=== PATIENT | male | born 1975 | race Caucasian/White ===

== ENCOUNTER → 2019-02-11 | Outpatient (CLI) | payer OTHER ==
--- NOTE | 2019-02-11 11:39 | RAD ---
MR#: [id number] Date of Study: 02/11/2019 Ordering Physician: SHAUNA SILVEIRA, Referring Physician: ROSA MARIA RASCON Tech: OLGA LIDIA Rowe, ARRT (R) (N) APPROVED REPORT Test Type: Exercise Stress Nurse/Tech: Kandy Osorio R.N. Test Indications: CHAN Cardiac History: htn Medications: amlodipine Medical History: see ehr Resting ECG: SR with pac Resting Heart Rate: 67 bpm Resting Blood Pressure: 140/90mmHg Pretest Chest Pain: No chest pain Nurse/Tech Notes lungs cta, heart tones regular Consent: The procedure was explained to the patient in lay terms. Informed consent was witnessed. Wilmer eout was entered into [facility]. History and Stress Test performed by RT Barby (Nirmal) (N) Stress Symptoms No chest pain or symptoms. POST EXERCISE Reason for Termination: Reached target heart rate Target HR: Yes Max HR: 159 bpm 90% of Maximum Predicted HR: 176 bpm Exercise duration: 11:31 min:sec, 4 Stage Exercise capacity: 13.4METs Max Blood Pressure: 180/110mmHg Blood Pressure response to exercise: Normal blood pressure response during stress. Heart Rate response to exercise: normal Chest Pain: No. Arrhythmia: No. ST Change: No. INTERPRETATION Stress EKG Conclusion: The resting EKG shows a sinus rhythm with an incomplete right bundle branch bl ock and nonspecific ST segment changes. The stress EKG showed no significant changes from baseline. No EKG evidence of stress-induced ischemia. Imaging Protocol IMAGE PROTOCOL: Rest Tc-99m/stress Tc-99m 1 day Rest: Stress: Viability: Radiopharm.Tc99m NpsbsvvqrKr52r Zzotfhngl86 Niqe48hPt 32mCi Img Date 02/11/2019 02/11/2019 Inj-Img Jqvu93csz. 45min. Rest Admin Site:IV - Right AntecubitalAdministrator:RADHA Rai Stress Admin Site: IV - Right AntecubitalAdministrator: RT Barby (R)(N) STRESS DATA End Diast. Vol.165.0mlLVEDV index BSA78.0ml End Syst. Vol.55.0mlLVESV index BSA26.0ml Myocardial Yvup512.0gEject. Skwnkjwh21.0% Stress Scores Regional WT1.00Summed WT8.00 Regional WM0.00Summed WM1.00 LV Perfusion Stress scans showed no significant defects. Rest scans showed no significant defects. Nuclear imaging shows no reversible ischemia or infarct. Wall Motion Left ventricular systolic function is normal with no regional wall motion abnormalities and an ejecti on fraction of 64%. LV Perf. Quant 17 Seg. SSS0.00 17 Seg. SRS0.00 17 Seg. SDS0.00 Stress Defect Extent (% LAD)0.00Rest Defect Extent (% LAD)0.00Rev. Defect Extent (% LAD)0.00 Stress Defect Extent (% LCX) 0.00Rest Defect Extent (% LCX)0.00Rev. Defect Extent (% LCX)0.00 Stress Defect Extent (% RCA)0.00Rest Defect Extent (% RCA)0.00Rev. Defect Extent (% RCA)0.00 Stress Defect Extent (% SHREE)0.00Rest Defect Extent (% SHREE)0.00Rev. Defect Extent (% SHREE)0.00 Conclusion 1. Very good exercise tolerance. 2. No chest pain reported with exertion. 3. No EKG evidence of stress-induced ischemia. 4. Nuclear imaging shows no reversible ischemia or infarct. 5. Normal LV systolic function with an ejection fraction of 64%. 6. Low risk treadmill nuclear stress test. Signed by : Darrius Quevedo MD Electronically Approved : 02/11/2019 11:39:15
== END | disposition home or self-care (01) ==
LOC: NM 08:30
PROVIDERS: ATTEND Internal Medicine Cardiovascular Disease
DX: I45.10 Unspecified right bundle-branch block (principal); I10 Essential (primary) hypertension
CPT/HCPCS: 78452; 93017; A9500

== ENCOUNTER → 2019-02-17 | Outpatient (CLI) | payer OTHER ==
--- NOTE | 2019-02-17 14:16 | CARD ---
MR#: [id number] Date of Study: 02/17/2019 Ordering Physician: SHAUNA LADD, Referring Physician: SHAUNA LADD Tech: Marina Coy RDCS APPROVED REPORT EXAM: Two-dimensional and M-mode echocardiogram with Doppler and color Doppler. Other Information Quality : AverageHR: 70bpm Rhythm : NSR INDICATION Dyspnea 2D DIMENSIONS RVDd3.5 (2.9-3.5cm)Left Atrium(2D)3.7 (1.6-4.0cm) IVSd1.2 (0.7-1.1cm)Aortic Root(2D)3.3 (2.0-3.7cm) LVDd5.0 (3.9-5.9cm)LVOT Diameter2.6 (1.8-2.4cm) PWd1.3 (0.7-1.1cm)LVDs2.9 (2.5-4.0cm) FS (%) 42.0 %SV84.6 ml LVEF(%)72.8 (>50%) M-Mode DIMENSIONS Left Atrium(MM)4.10 (2.5-4.0cm)Aortic Root3.26 (2.2-3.7cm) Aortic Valve AoV Peak Sean.140.8cm/sAoV VTI28.6cm AO Peak GR.7.9mmHgLVOT Peak Sean.87.9cm/s AO Mean GR.4mmHgAVA (VMAX)3.20cm2 TITO (VTI)3.00cm2 Mitral Valve MV E Zrzewrii97.6cm/sMV DECEL [id number] MV A Pyrnmxdj54.9cm/sE/A Ratio1.3 Pulmonary Valve PV Peak Aphfdfuo67.5cm/s Tricuspid Valve TR P. Heakpilb675lg/sRAP VGJXJWBP4dkIg TR Peak Gr.75enZcBEHA30gqIl LEFT VENTRICLE The left ventricle is normal size. There is mild concentric left ventricular hypertrophy. The Ejectio n Fraction is 65-70%. The left ventricular systolic function is normal. There is normal LV segmental wall motion. The left ventricular diastolic function and filling is normal for age. RIGHT VENTRICLE The right ventricle is normal size. There is normal right ventricular wall thickness. The right ventr icular systolic function is normal. ATRIA The left atrium is borderline dilated. The right atrium size is normal. The interatrial septum is int act with no evidence for an atrial septal defect or patent foramen ovale as noted on 2-D or Doppler i maging. AORTIC VALVE The aortic valve is normal in structure and function. The aortic valve is trileaflet. Doppler and Col or Flow revealed no significant aortic regurgitation. There is no significant aortic valvular stenosi s. There is no aortic valvular vegetation. MITRAL VALVE The mitral valve is normal in structure and function. A mild mitral valve prolapse is present. There is no mitral valve stenosis. Doppler and Color-flow revealed mild mitral regurgitation. TRICUSPID VALVE The tricuspid valve is normal in structure and function. Doppler and Color Flow revealed trace tricus pid regurgitation. The PA pressure was estimated at 27 mmHg. There is no tricuspid valve prolapse or vegetation. There is no tricuspid valve stenosis. PULMONIC VALVE The pulmonary valve is normal in structure and function. Doppler and Color Flow revealed mild pulmoni c valvular regurgitation. There is no pulmonic valvular stenosis. GREAT VESSELS The aortic root is normal in size. The ascending aorta is normal in size. The IVC is normal in size a nd collapses >50% with inspiration. PERICARDIAL EFFUSION There is no evidence of significant pericardial effusion. Critical Notification Critical Value: No <Conclusion> The left ventricular systolic function is normal. The Ejection Fraction is 65-70%. There is normal LV segmental wall motion. Mild mitral regurgitation. Trace tricuspid regurgitation. The PA pressure was estimated at 27 mmHg. There is no evidence of significant pericardial effusion. Signed by : Shauna Ladd, Electronically Approved : 02/17/2019 14:16:17
== END | disposition home or self-care (01) ==
LOC: ECHO 12:57
PROVIDERS: ATTEND Internal Medicine Cardiovascular Disease
DX: I08.8 Other rheumatic multiple valve diseases (principal)
CPT/HCPCS: 93306